=== PATIENT | male | born 1985 | race Hispanic/Latino ===

== ENCOUNTER 2020-12-19 11:14 | Emergency (ER) | payer SELFPAY ==
--- OUTSIDE RECORDS SUMMARY | 2020-12-19 11:16 | XMS REPORT | Continuity of Care Document ---
:1985 Author Organization [facility] t Address [address] [place] [address] Care Team Providers Name Role Phone Unavailable Unavailable Unavailable Payers Payer Name Policy Type Policy Number Effective Date Expiration Date S ource Problems This patient has no known problems. Allergies, Adverse Reactions, Alerts Allergy Allergy Status Severity Reaction(s) Onset Inactive Treating Comm ents Source Name Type Date Date Clinician No Known DA Active U [facility] Allergie 03-13 [facility] 00[facility] Medications This patient has no known medications. Procedures This patient has no known procedures. Results Test Description Test Time Test Comments Results Result Comments Source [id number] 2019-08-29 01:03:00 Test Item Value Reference Range Interpretation Comme nts GLYCOSYLATED HEMOGLOBIN (HA1C) (test code = GLYHGB) 11.8 % 4. 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 CRITICAL VALUE CALLEDTO AND CRITICAL VALUE READ BACK BY YEIMY SULLIVAN RN [id number]/19. Josefina Pradhan BLOOD UREA NITROGEN 13 mg/dL 7-18 N (test code = BUN) GLOMERULAR FILTRATION > 60.00 >=60 Report ing units: RATE (test code = GFR) mL/mi n/1.73m\S\2 (Modified MDRD formula)REFEREN CE RANGE: > or = 6 0 ml/min/1.73M2IF PATIENT IS -PAOLA N, MULTIPLY REPORT ED RESULT BY08.07. CREATININE (test code = 1.18 mg/dl 0.70-1.30 N CREAT) TOTAL PROTEIN (test 7.7 g/dl 6.4-8.2 N code = PROT) ALBUMIN (test code = 4.0 g/dl 3.4-5.0 N ALB) CALCIUM (test code = 9.1 mg/dL 8.5-10.1 N CA) BILIRUBIN TOTAL (test 0.6 mg/dL 0.2-1.0 N code = BILT) SGOT/AST (test code = 119 U/L 15-37 H AST) SGPT/ALT (test code = 333 U/L 12-78 H ALT) ALKALINE PHOSPHATASE 100 U/L 50-136 N TOTAL (test code = ALKP) [id number] 20:51:00 Test Item Value Reference Range Interpretation Comments LIPASE (test code = LIP) 247 U/L 73-393 N [id number] 20:51:00 Test Item Value Reference Range Interpretation Comments TROPONIN-I (test <0.017 ng/ml 0.00-0.045 N GUIDELINES: 0.08 - 0.09 code = TROPI) Indeterminate0 .10 Risk Stratifica tion Limit: Suggest sequential te sting0.60 - 1.50 AMI cut off: Myocardial Inju ry by WHO criteria PROTHROMBIN [id number] 20:49:00 Test Item Value Reference Interpretation Comments Range PROTHROMBIN TIME 10.2 SECONDS 8.7-11.9 N THERAPEUTIC LEVEL: 1.5 TO PATIENT (test code 1.9 TIMES NORMAL RANGE = PTP) INTERNATIONAL 1.1 Recommended Th erapeutic NORMAL RATIO (test PT Ratios For Oral code = INR) AnticoagulantTh erapy. CONDITION INT'L N ORMALIZED PT RATIO------- --- Prophylaxis of venous thrombosis 2.0 - 3.0in [facility] medical or surgicalpati ents, treatment of venousthrombosi s, prevention of e mbolism. Prevention of r ecurrent embolism, 2.5 - 3.5or treatment of patients with mechanicalprost hetic heart valves. THROMBOPLASTIN TIME [id number] 20:49:00 Test Item Value Reference Range Interpretation Comments THROMBOPLASTIN TIME PARTIAL 22.7 seconds 22.8-34.4 L (test code = PTT) URINALYSIS W REFLEX [id number] 20:38:00 Test Item Value Reference Range Interpretation Comments UA COLOR (test code = COLU) YELLOW YELLOW UA APPEARANCE (test code = CLEAR CLEAR APPU) UA GLUCOSE DIPSTICK (test code 1000 mg/dl NORMAL A = DGLUU) UA BILIRUBIN DIPSTICK (test NEGATIVE mg/dl NEGATIVE code = BILU) UA KETONE DIPSTICK (test code 50 mg/dl NEGATIVE A = KETU) UA SPECIFIC GRAVITY (test code 1.015 1.001-1.035 N = SGU) UA BLOOD DIPSTICK (test code = NEGATIVE /UL NEGATIVE JAEL) UA PH DIPSTICK (test code = 6.0 4.6-8.0 NILSON) UA PROTEIN DIPSTICK (test code 15 mg/dl NEGATIVE A = PROU) UA UROBILINIOGEN DIPSTICK NORMAL mg/dl NORMAL (test code = URO) UA NITRITE DIPSTICK (test code NEGATIVE NEGATIVE = COLBY) UA LEUKOCYTE ESTERASE DIPSTICK NEGATIVE /UL NEGATIVE (test code = LEUU) UA COMMENT (test code = COMU) CLN CATCH UA MICROSCOPIC NEEDED? (test Y= DO UA MICRO code = UAMICRO) UA [id number] 20:38:00 Test Item Value Reference Range Interpretation Comments UA WBC (test code = WBCU) 3-5 #/hpf 0-5 UA RBC (test code = RBCU) 0-2 #/hpf 0-5 UA EPITHELIAL CELLS (test code = FEW /hpf NEG,FEW EPIU) CBC W/AUTO [id number] 20:34:00 Test Item Value Reference Range Interpretation Comments WHITE BLOOD CELL (test code = 8.0 X10(3) 4.5-11.0 N WBC) RED BLOOD CELL (test code = RBC) 5.65 X10(6) 4.3-5.9 N HEMOGLOBIN (test code = HGB) 16.2 g/dL 13.5-18.0 N HEMATOCRIT (test code = HCT) 46.8 % 42.0-52.0 N MEAN CELL VOLUME (test code = 82.8 fL 78-100 N MCV) MEAN CELL HGB (test code = MCH) 28.7 pg 26.0-34.0 N MEAN CELL HGB CONCETRATION (test 34.6 g/dl 30.0-37.0 N code = MCHC) RED CELL DISTRIBUTION WIDTH (test 13.1 % 11.5-14.5 N code = RDW) PLATELET COUNT (test code = PLT) 167 X10(3) 150-350 N MEAN PLATELET VOLUME (test code = 12.8 fl 8.7-11.4 H MPV) NEUTROPHIL % (test code = NT%) 50.1 % 36.0-66.0 N LYMPHOCYTE % (test code = LY%) 39.2 % 16-50 N MONOCYTE % (test code = MO%) 7.3 % 0.0-13.0 N EOSINOPHIL % (test code = EO%) 2.7 % 0.0-4.5 N BASOPHIL % (test code = BA%) 0.7 % 0.0-1.5 N NEUTROPHIL # (test code = NT#) 4.0 X10(3) 1.7-7.7 N LYMPHOCYTE # (test code = LY#) 3.2 X10(3) 1.0-4.8 N MONOCYTE # (test code = MO#) 0.6 X10(3) 0.0-0.89 N EOSINOPHIL # (test code = EO#) 0.2 X10(3) 0.0-0.6 N BASOPHIL # (test code = BA#) 0.1 X10(3) 0.0-0.2 N RBC MORPHOLOGY REQUIRED (test NO NORMAL code = RBCM) LACTIC [id number] 20:33:00 Test Item Value Reference Range Interpretation Comments LACTIC ACID (test code = LACT) 1.7 mmol/l 0.4-2.0 N URINALYSIS W REFLEX [id number] 20:23:00 Test Item Value Reference Range Interpretation Comments UA COLOR (test code = COLU) YELLOW YELLOW UA APPEARANCE (test code = CLEAR CLEAR APPU) UA GLUCOSE DIPSTICK (test code 1000 mg/dl NORMAL A = DGLUU) UA BILIRUBIN DIPSTICK (test NEGATIVE mg/dl NEGATIVE code = BILU) UA KETONE DIPSTICK (test code 50 mg/dl NEGATIVE A = KETU) UA SPECIFIC GRAVITY (test code 1.015 1.001-1.035 N = SGU) UA BLOOD DIPSTICK (test code = NEGATIVE /UL NEGATIVE JAEL) UA PH DIPSTICK (test code = 6.0 4.6-8.0 NILSON) UA PROTEIN DIPSTICK (test code 15 mg/dl NEGATIVE A = PROU) UA UROBILINIOGEN DIPSTICK NORMAL mg/dl NORMAL (test code = URO) UA NITRITE DIPSTICK (test code NEGATIVE NEGATIVE = COLBY) UA LEUKOCYTE ESTERASE DIPSTICK NEGATIVE /UL NEGATIVE (test code = LEUU) UA COMMENT (test code = COMU) CLN CATCH UA MICROSCOPIC NEEDED? (test Y= DO UA MICRO code = UAMICRO) URINALYSIS W REFLEX [id number] 20:23:00 Test Item Value Reference Range Interpretation Comments UA COLOR (test code = COLU) YELLOW YELLOW UA APPEARANCE (test code = CLEAR CLEAR APPU) UA GLUCOSE DIPSTICK (test code 1000 mg/dl NORMAL A = DGLUU) UA BILIRUBIN DIPSTICK (test NEGATIVE mg/dl NEGATIVE code = BILU) UA KETONE DIPSTICK (test code 50 mg/dl NEGATIVE A = KETU) UA SPECIFIC GRAVITY (test code 1.015 1.001-1.035 N = SGU) UA BLOOD DIPSTICK (test code = NEGATIVE /UL NEGATIVE JAEL) UA PH DIPSTICK (test code = 6.0 4.6-8.0 NILSON) UA PROTEIN DIPSTICK (test code 15 mg/dl NEGATIVE A = PROU) UA UROBILINIOGEN DIPSTICK NORMAL mg/dl NORMAL (test code = URO) UA NITRITE DIPSTICK (test code NEGATIVE NEGATIVE = COLBY) UA LEUKOCYTE ESTERASE DIPSTICK NEGATIVE /UL NEGATIVE (test code = LEUU) UA COMMENT (test code = COMU) CLN CATCH UA MICROSCOPIC NEEDED? (test Y= DO UA MICRO code = UAMICRO)
--- NOTE | 2020-12-19 11:52 | RAD REPORT ---
EXAM DESCRIPTION: CT - CTHCSPWOC - 12/19/2020 11:29 am CLINICAL HISTORY: PAINtrauma studies, blunt force trauma to the neck and back, head injury COMPARISON: Abdomen Pelvis Wo Contrast dated 08/05/2019Thoracic Spine W/o Cont dated 12/19/2020 TECHNIQUE: Axial 5 mm thick images of the head were obtained. Axial 2 mm thick images of the cervic al spine were obtained with sagittal and coronal reconstruction images generated and reviewed. All CT scans are performed using dose optimization technique as appropriate and may include automated exposure control or mA/KV adjustment according to patient size. FINDINGS: No intracranial hemorrhage, mass, edema or acute intracranial finding. No suspicion for ac kamaljit infarction. No extra-axial fluid collections. Mastoid air cells and paranasal sinuses are clear. No globe or orbit abnormality seen. Cervical body height and alignment are normal. No disk space narrowing. No fracture or acute bony abn ormality. Central canal detail is inherently limited. No suspicious paraspinal mass or hematoma. Patient does have numerous small bilateral nonspecific lym ph nodes most likely reactive. No bulky lymphadenopathy. IMPRESSION: Negative CT head examination for acute or significant finding. Negative CT cervical spine examination for acute or significant finding. Patient does have small nonspecific bilateral cervical lymph nodes that are most likely reactive.
[2020-12-19] MEDS ORDERED: FENTANYL CITR 100 MCG/2 ML ONE (11:57)
--- NOTE | 2020-12-19 11:57 | RAD REPORT ---
EXAM DESCRIPTION: CT - Thoracic Spine W/o Cont - 12/19/2020 11:30 am CLINICAL HISTORY: Back pain, work injury, blunt force trauma COMPARISON: None. TECHNIQUE: Axial 3 mm thick images of the thoracic spine were obtained with sagittal and coronal rec onstruction images generated and reviewed. All CT scans are performed using dose optimization technique as appropriate and may include automated exposure control or mA/KV adjustment according to patient size. FINDINGS: There is very slight wedging of the T6 body. Approximately 20% overall loss in height is s een. Posterior wall height is preserved. No comparison is available. There are no acute fracture line s identifiable. Remaining thoracic vertebrae are normal in height. No disk space narrowing. No pathol ogic bone process. Posterior elements are intact. No paraspinal mass or hematoma. The medial aspect of the ribcage is intact. Central canal detail is inherently limited on CT imaging. IMPRESSION: Approximately 20% wedge compression configuration of the T6 body with posterior wall hei ght preserved. No acute fracture lines are seen in T6. This may well be a chronic vertebral injury. No other significant thoracic spine finding. Central canal detail is inherently limited. If there is clinical need to further evaluate the T6 body, MR imaging could be performed to evaluate for any active marrow edema.
[2020-12-19] MEDS ORDERED: ONDANSETRON 4 MG/2 ML VIAL ONE (11:58)
--- NOTE | 2020-12-19 12:01 | RAD REPORT ---
EXAM DESCRIPTION: CT - Spine Lumbar Wo Con - 12/19/2020 11:29 am CLINICAL HISTORY: PAIN, work injury, blunt force trauma COMPARISON: None. TECHNIQUE: Thin section axial imaging of the lumbar spine was performed. Sagittal and coronal recon struction images were generated and reviewed. All CT scans are performed using dose optimization technique as appropriate and may include automated exposure control or mA/KV adjustment according to patient size. FINDINGS: Lumbar bodies are normal in height and alignment. No disc space narrowing. No acute or shani tructive bone process identifiable. Central canal detail is inherently limited. Disc bulge and endplate spurring changes are present in t he far left central canal and left exit foramen at L5-S1. There is left foraminal stenosis. This is n ot seen as an acute injury. IMPRESSION: No fracture or acute vertebral finding identified. Disc bulge and endplate spurring L5-S1 causing left foraminal stenosis. There may be mild flattening of the thecal sac in the left anterior aspect of the central canal.
--- NOTE | 2020-12-19 12:06 | RAD REPORT ---
EXAM DESCRIPTION: RAD - Chest Single View - 12/19/2020 11:51 am CLINICAL HISTORY: TRAUMAblunt force trauma to the chest COMPARISON: No remote imaging TECHNIQUE: AP portable chest image was obtained 12/19/2020 11:51 am . FINDINGS: No pulmonary contusion or acute lung parenchymal process. Heart and vasculature are normal . No measurable pleural effusion and no pneumothorax. No acute bony abnormality seen. No acute aortic findings suspected. IMPRESSION: No acute cardiopulmonary process.
--- NOTE | 2020-12-19 12:06 | RAD REPORT ---
EXAM DESCRIPTION: RAD - Pelvis - 12/19/2020 11:51 am CLINICAL HISTORY: TRAUMAblunt force trauma to the pelvis COMPARISON: No comparisons TECHNIQUE: AP imaging of the pelvis was obtained. FINDINGS: SI joints and pubic symphysis are intact. No dislocation or fracture of either proximal fe mur. No fracture of the bony pelvis. No soft tissue abnormality seen. IMPRESSION: Negative pelvis
--- NOTE | 2020-12-19 12:07 | RAD REPORT ---
EXAM DESCRIPTION: RAD - Femur Right - 12/19/2020 11:52 am CLINICAL HISTORY: PAINtrauma, blunt force injury COMPARISON: No comparisons FINDINGS: No fracture, dislocation or periosteal reaction noted. No acute or suspicious bony finding . No air or foreign body in the soft tissues. IMPRESSION: Negative right femur examination.
[2020-12-19 12:19] LABS: Absolute Lymphocytes (CBC) 2.3 K/uL (0.7-4.9); Basophils % 0.8 % (0-1.3); Hematocrit 44.6 % (39.6-49.0); Lymphocytes % 21.5 % (15.3-44.8); MPV 9.9 fL (7.6-11.3); RBC Red Blood Cell Count 5.27 M/uL (4.33-5.43)
[2020-12-19 12:26] LABS: BUN Blood Urea Nitrogen 23 mg/dL (7-18); Bicarbonate 27 mmol/L (21-32); Glucose Level 295 mg/dL (74-106); Potassium 4.3 mmol/L (3.5-5.1); Sodium Level 138 mmol/L (136-145)
--- NOTE | 2020-12-19 14:01 | EDPHYS ---
Physician Documentation [facility] Name: Wilfrid Herbert Age: 35 yrs Sex: Male : 1985 Arrival Date: 12/19/2020 Time: 11:14 Bed 4 Private MD: ED Physician Julian Lazaro HPI: 12/19 13:57 This 35 yrs old Male presents to ER via EMS with complaints of Blunt Trauma. jr8 13:57 Onset: The symptoms/episode began/occurred acutely, today. The patient has not jr8 experienced similar symptoms in the past. The patient has not recently seen a physician. Patient was working at his work site. Had hard had on but a "I-Beam" that was about 30ft up came down and hit patient on back of head and upper back. Denies LOC. Patient brought in by EMS with spinal precautions. Complains of pain to back of head down through spine. Historical: - Allergies: 11:19 No Known Allergies; bp - Home Meds: 11:19 Insulin: Novolin 70/30 Sub-Q [Active]; bp - PMHx: 11:19 Diabetes - IDDM; bp - Immunization history: Last tetanus immunization: unknown. - Social history:: Smoking status: Patient denies any tobacco usage or history of. ROS: 13:57 Eyes: Negative for injury, pain, redness, and discharge, ENT: Negative for injury, jr8 pain, and discharge, Cardiovascular: Negative for chest pain, palpitations, and edema, Respiratory: Negative for shortness of breath, cough, wheezing, and pleuritic chest pain, Abdomen/GI: Negative for abdominal pain, nausea, vomiting, diarrhea, and constipation, MS/Extremity: Negative for injury and deformity, Skin: Negative for injury, rash, and discoloration, Neuro: Negative for headache, weakness, numbness, tingling, and seizure. 13:57 Neck: Positive for pain with movement, pain at rest, stiffness, tenderness, bony tenderness. 13:57 Back: Positive for pain at rest, pain with movement, Negative for radiated pain. Exam: 13:57 Head/Face: Normocephalic, atraumatic. Eyes: Pupils equal round and reactive to light, jr8 extra-ocular motions intact. Lids and lashes normal. Conjunctiva and sclera are non-icteric and not injected. Cornea within normal limits. Periorbital areas with no swelling, redness, or edema. ENT: Nares patent. No nasal discharge, no septal abnormalities noted. Tympanic membranes are normal and external auditory canals are clear. Oropharynx with no redness, swelling, or masses, exudates, or evidence of obstruction, uvula midline. Mucous membranes moist. Chest/axilla: Normal chest wall appearance and motion. Nontender with no deformity. No lesions are appreciated. Cardiovascular: Regular rate and rhythm with a normal S1 and S2. No gallops, murmurs, or rubs. Normal PMI, no JVD. No pulse deficits. Respiratory: Lungs have equal breath sounds bilaterally, clear to auscultation and percussion. No rales, rhonchi or wheezes noted. No increased work of breathing, no retractions or nasal flaring. Abdomen/GI: Soft, non-tender, with normal bowel sounds. No distension or tympany. No guarding or rebound. No evidence of tenderness throughout. Skin: Warm, dry with normal turgor. Normal color with no rashes, no lesions, and no evidence of cellulitis. MS/ Extremity: Pulses equal, no cyanosis. Neurovascular intact. Full, normal range of motion. Neuro: Awake and alert, GCS 15, oriented to person, place, time, and situation. Cranial nerves II-XII grossly intact. Motor strength 5/5 in all extremities. Sensory grossly intact. 13:57 Neck: C-spine: C-collar placed [employer], Back board [employer]GER vertebral tenderness, that is moderate, appreciated at C5, C6 and C7, Trachea: is midline with no obvious abnormalities, ROM/movement: pain, Lymph nodes: no appreciated lymphadenopathy. 13:57 Back: pain, that is moderate, of the thoracic area and lumbar area, ROM is painful, normal spinal alignment noted, CVA tenderness, is absent. Vital Signs: 11:19 BP 151 / 102; Pulse 118; Resp 17; Pulse Ox 95% on R/A; bp 12:02 BP 146 / 92; Pulse 88; Resp 16; Pulse Ox 98% ; bp 13:24 BP 146 / 79; Pulse 89; Resp 23; Pulse Ox 96% ; bp 14:58 BP 132 / 84; Pulse 86; Resp 19; Temp 98; Pulse Ox 99% ; bp [place] Coma Score: 11:19 Eye Response: spontaneous(4). Verbal Response: oriented(5). Motor Response: obeys bp commands(6). Total: 15. Trauma Score (Adult): 11:19 Eye Response: spontaneous(1); Verbal Response: oriented(1); Motor Response: obeys bp commands(2); Systolic BP: > 89 mm Hg(4); Respiratory Rate: 10 to 29 per min(4); [place] Score: 15; Trauma Score: 12 MDM: 11:15 Patient medically screened[address] [facility] 13:51 Data reviewed: vital signs, nurses notes, lab test result(s), EKG, radiologic studies, [facility] CT scan, plain films. Data interpreted: Pulse oximetry: on room air is 96 %. Interpretation: normal. Counseling: I had a detailed discussion with the patient and/or guardian regarding: the historical points, exam findings, and any diagnostic results supporting the discharge/admit diagnosis, lab results, radiology results, the need for outpatient follow up, a neurosurgeon, to return to the emergency department if symptoms worsen or persist or if there are any questions or concerns that arise at home. 14:04 ED course: No Known data for patient on the [facility] site . 12/19 11:18 Order name: Basic Metabolic Panel; Complete Time: 13:37 12/19 11:18 Order name: CBC with Diff; Complete Time: 13:37 12/19 11:18 Order name: CT Head C Spine; Complete Time: 11:54 12/19 11:18 Order name: CT Thoracic Spine Wo Cont; Complete Time: 12:03 12/19 11:18 Order name: CT Lumbar Spine Wo Con; Complete Time: 12:03 12/19 11:18 Order name: XRAY Chest (1 view); Complete Time: 12:13 12/19 11:18 Order name: XRAY Pelvis; Complete Time: 12:13 12/19 11:18 Order name: XRAY Femur RIGHT; Complete Time: 12:13 12/19 11:18 Order name: IV; Complete Time: 11:26 12/19 11:18 Order name: Labs collected and sent; Complete Time: 12:12 Administered Medications: 12:00 Drug: fentaNYL (PF) 100 mcg Route: IVP; Site: right antecubital; bp 12:14 Follow up: Response: Pain is decreased bp 12:00 Drug: Zofran (Ondansetron) 4 mg Route: IVP; Site: right antecubital; bp 15:03 Follow up: Response: No adverse reaction bp 14:00 Drug: Dilaudid (HYDROmorphone) 0.5 mg Route: IVP; Site: right antecubital; bp 14:30 Follow up: Response: Pain is decreased bp Disposition: 18:48 Co-signature as Attending Physician, Julian Lazaro MD I agree with the assessment and kdr plan of care. Disposition: 12/19/20 14:01 Discharged to Home. Impression: Wedge compression fracture of T5-T6 vertebra, Acute pain due to trauma. - Condition is Stable. - Discharge Instructions: Head Injury, Adult, Muscle Pain, Adult, Pain Medicine Instructions. - Prescriptions for Ibuprofen 800 mg Oral Tablet - take 1 tablet by ORAL route every 12 hours As needed take with food; 20 tablet. Robaxin 500 mg Oral Tablet - take 2 tablet by ORAL route every 6 hours As needed; 40 tablet. Tylenol- Codeine #3 300-30 mg Oral Tablet - take 2 tablets by ORAL route every 4-6 hours As needed; 20 tablet. - Medication Reconciliation Form, Thank You Letter, Antibiotic Education, Prescription Opioid Use, Work release form form. - Follow up: Private Physician; When: 5 - 6 days; Reason: Recheck today's complaints, Continuance of care, Re-evaluation by your physician. - Problem is new. - Symptoms have improved. Signatures: Dispatcher [employer] EDMS Julian Lazaro MD MD [facility] Gato Taylor PA PA jr8 Cosmo Zaragoza, RN RN bp Corrections: (The following items were deleted from the chart) 14:01 14:01 12/19/2020 14:01 Discharged to Home. Impression: Wedge compression fracture of jr8 T5-T6 vertebra. Condition is Stable. Forms are Medication Reconciliation Form, Thank You Letter, Antibiotic Education, Prescription Opioid Use. Follow up: Private Physician; When: 5 - 6 days; Reason: Recheck today's complaints, Continuance of care, Re-evaluation by your physician. Problem is new. Symptoms have improved. jr8 15:04 14:01 12/19/2020 14:01 Discharged to Home. Impression: Wedge compression fracture of bp T5-T6 vertebra; Acute pain due to trauma. Condition is Stable. Forms are Medication Reconciliation Form, Thank You Letter, Antibiotic Education, Prescription Opioid Use. Follow up: Private Physician; When: 5 - 6 days; Reason: Recheck today's complaints, Continuance of care, Re-evaluation by your physician. Problem is new. Symptoms have improved. jr8
--- NOTE | 2020-12-19 14:01 | ER ---
Nurse's Notes [facility] Name: Wilfrid Herbert Age: 35 yrs Sex: Male : 1985 Arrival Date: 12/19/2020 Time: 11:14 Bed 4 Private MD: Diagnosis: Wedge compression fracture of T5-T6 vertebra;Acute pain due to trauma Presentation: 12/19 11:15 Chief complaint: EMS states: STRUCK BY FALLING I-BEAM ON JOB SITE, NO LOC. Care prior bp to arrival: Cervical collar in place. Placed on backboard. Medication(s) given: 100 MCG FENTANYL IV initiated. 20 GA, in the right antecubital area. Mechanism of Injury: BLUNT TRAUMA. Trauma event details: Injury occurred in the [facility], Injury occurred: in an industrial place of business Injury occurred: December 19, 2020 Injury occurred at: 10:45. 11:15 Acuity: MINERVA 2 bp 11:15 Method Of Arrival: EMS: [facility] bp 15:03 Coronavirus screen: At this time, the client does not indicate any symptoms associated bp with coronavirus-19. Ebola Screen: No symptoms or risks identified at this time. Initial Sepsis Screen: Does the patient meet any 2 criteria? No. Patient's initial sepsis screen is negative. Does the patient have a suspected source of infection? No. Patient's initial sepsis screen is negative. Risk Assessment: Do you want to hurt yourself or someone else? Patient reports no desire to harm self or others. Onset of symptoms was December 19, 2020 at 12:00. Trauma Activation: Alert Physician: ED Physician; Name: ; Notified At: ; Arrived At: Physician: General Surgeon; Name: ; Notified At: ; Arrived At: Physician: Radiology; Name: ; Notified At: ; Arrived At: Physician: Respiratory; Name: ; Notified At: ; Arrived At: Physician: Lab; Name: ; Notified At: ; Arrived At: Historical: - Allergies: :19 No Known Allergies; bp - Home Meds: : Insulin: Novolin 70/30 Sub-Q [Active]; bp - PMHx: 11:19 Diabetes - IDDM; bp - Immunization history: Last tetanus immunization: unknown. - Social history:: Smoking status: Patient denies any tobacco usage or history of. Screenin:19 Abuse screen: Denies threats or abuse. Denies injuries from another. Tuberculosis bp screening: No symptoms or risk factors identified. 14:58 Nutritional screening: No deficits noted. Fall Risk No fall in past 12 months (0 pts). bp Primary Survey: 11:19 NO uncontrolled hemorrhage observed. A: The patient is alert. Airway: patent. bp Breathing/Chest: Respiratory pattern: regular, Respiratory effort: spontaneous, unlabored. Circulation: Skin temperature: warm, dry. Disability Alert. Exposure/Environment: All clothing and personal items were removed. Forensic evidence collection is not deemed to be indicated at this time. Items placed in patient belonging bag. No obvious injuries are noted at this time. 15:02 Reassessment Breathing/Chest Respiratory pattern Regular Respiratory effort Spontaneous bp Unlabored. Secondary Survey: 11:19 HEENT: No deficits noted. Gastrointestinal: Abdomen is soft, obese. : No deficits bp noted. Assessment: 11:15 General: Appears distressed, uncomfortable, obese, Behavior is cooperative, appropriate bp for age, anxious. Pain: Complains of pain in back of neck and posterior chest. Neuro: Level of Consciousness is awake, alert, obeys commands, Oriented to Appropriate for age [employer]sc[employer] Producer are equal bilaterally Moves all extremities. EENT: No deficits noted. Cardiovascular: No deficits noted. Respiratory: No deficits noted. GI: No signs and/or symptoms were reported involving the gastrointestinal system. : No signs and/or symptoms were reported regarding the genitourinary system. Derm: No deficits noted. Musculoskeletal: No deficits noted. 12:01 Reassessment: PT RETURNED FROM RADIOLOGY. Neuro: Level of Consciousness is awake, bp alert, obeys commands, Oriented to Appropriate for age Newscast Producer are equal bilaterally Moves all extremities. Full function. 13:23 Reassessment: PT SPINAL PXN AND C-COLLAR CLEARED. REMAINS NEURO INTACT. Neuro: Level of bp Consciousness is awake, alert, obeys commands, Oriented to [employer]scast Producer are equal bilaterally Moves all extremities. Full function. 14:58 Reassessment: PT D/C HOME AMBULATORY WITH FAMILY, DX WITH COMPRESSION FX OF T5-T6. bp Vital Signs: 11:19 BP 151 / 102; Pulse 118; Resp 17; Pulse Ox 95% on R/A; bp 12:02 BP 146 / 92; Pulse 88; Resp 16; Pulse Ox 98% ; bp 13:24 BP 146 / 79; Pulse 89; Resp 23; Pulse Ox 96% ; bp 14:58 BP 132 / 84; Pulse 86; Resp 19; Temp 98; Pulse Ox 99% ; bp [place] Score: 11:19 Eye Response: spontaneous(4). Verbal Response: oriented(5). Motor Response: obeys bp commands(6). Total: 15. Trauma Score (Adult): 11:19 Eye Response: spontaneous(1); Verbal Response: oriented(1); Motor Response: obeys bp commands(2); Systolic BP: > 89 mm Hg(4); Respiratory Rate: 10 to 29 per min(4); [place] Score: 15; Trauma Score: 12 ED Course: 11:14 Patient arrived in ED. bp 11:15 Gato Taylor PA is PHCP. jr8 11:15 Julian Lazaro MD is Attending Physician. jr8 11:17 Triage completed. bp 11:17 Maintain EMS IV. Dressing intact. Good blood return noted. Site clean \T\ dry. Gauge \T\ bp site: 18 GAUGE R AC. Patient maintains SpO2 saturation greater than 95% on room air. 11:19 Thermoregulation: warm blanket given to patient. bp 11:19 Patient has correct armband on for positive identification. Bed in low position. Call bp light in reach. 11:29 CT Head C Spine In Process Unspecified. EDMS 11:29 CT Lumbar Spine Wo Con In Process Unspecified. EDMS 11:30 CT Thoracic Spine Wo Cont In Process Unspecified. EDMS 11:45 Cosmo Zaragoza, RN is Primary Nurse. bp 11:52 XRAY Chest (1 view) In Process Unspecified. EDMS 11:52 XRAY Pelvis In Process Unspecified. EDMS 11:52 XRAY Femur RIGHT In Process Unspecified. EDMS 14:58 No provider procedures requiring assistance completed. IV discontinued, intact, bp bleeding controlled, No redness/swelling at site. Pressure dressing applied. Administered Medications: 12:00 Drug: fentaNYL (PF) 100 mcg Route: IVP; Site: right antecubital; bp 12:14 Follow up: Response: Pain is decreased bp 12:00 Drug: Zofran (Ondansetron) 4 mg Route: IVP; Site: right antecubital; bp 15:03 Follow up: Response: No adverse reaction bp 14:00 Drug: Dilaudid (HYDROmorphone) 0.5 mg Route: IVP; Site: right antecubital; bp 14:30 Follow up: Response: Pain is decreased bp Intake: 15:02 PO: 0ml; Total: 0ml. bp Output: 15:02 Urine: 0ml; Total: 0ml. bp Outcome: 14:01 Discharge ordered by MD. escobedo 14:58 Discharged to home ambulatory, with family. bp 14:58 Condition: stable 14:58 Discharge instructions given to patient, family, Instructed on discharge instructions, follow up and referral plans. medication usage, Demonstrated understanding of instructions, follow-up care, medications, Prescriptions given X 3. 15:02 Patient's length of stay was not longer than 2 hours. bp 15:04 Patient left the ED. bp Signatures: Dispatcher [employer] EDMS Gato Taylor PA PA jr8 Cosmo Zaragoza, RN RN bp
[2020-12-19] MEDS ORDERED: HYDROMORPHONE HCL 0.5 MG/0.5 ML INJ ONE (14:19)
[2020-12-19 15:14] VITALS: BP 132/84; TEMP 98; O2SAT 99
== END 2020-12-19 15:04 | disposition home or self-care (01) ==
LOC: ER 11:14
DX: S22.050A Wedge compression fracture of T5-T6 vertebra, initial encounter for closed fracture (principal); W20.8XXA Other cause of strike by thrown, projected or falling object, initial encounter; G89.11 Acute pain due to trauma; Y99.0 Civilian activity done for income or pay; E11.9 Type 2 diabetes mellitus without complications; Z79.4 Long term (current) use of insulin
CPT/HCPCS: 36415; 70450; 71045; 72125; 72128; 72131; 72170; 80048; 85025; 96374; 96375; 99284; G0390; J1170; J2405; J3010